=== PATIENT | female | born 1950 | race Caucasian/White ===

== ENCOUNTER 2017-12-19 12:33 | Day surgery (SDC) | payer OTHER ==
[2017-12-19] MEDS ORDERED: PROPOFOL 40 ML (15:08)
== END 2017-12-19 16:46 | disposition home or self-care (01) ==
LOC: GIL 12:33
DX: Z12.11 Encounter for screening for malignant neoplasm of colon (principal); D12.5 Benign neoplasm of sigmoid colon; K57.90 Diverticulosis of intestine, part unspecified, without perforation or abscess without bleeding; K64.8 Other hemorrhoids; E66.9 Obesity, unspecified; Z68.32 Body mass index [BMI] 32.0-32.9, adult
CPT/HCPCS: 45378; 88305